=== PATIENT | female | born 1980 | race Caucasian/White ===

== ENCOUNTER 2017-10-01 06:01 | Emergency (ER) | payer BC ==
[2017-10-01 06:20] VITALS: TEMP 97.6; BMI 32.4
--- NOTE | 2017-10-01 06:23 | PDOC ---
History of Present Illness - History of Present Illness Initial Comments: 10/01/17 06:11 Just initiated Saxenda for weight loss. Started at 3mg instead of recommended 0.6mg Developed marked nausea and multiple bouts of vomiting Feels persistently nauseated pmh: constipation fhx: noncontrib ros: reviewed and otherwise negative Physical exam: GENERAL: [The patient is awake, alert, and fully oriented, and in no apparent distress.] HEAD: [Normal with no signs of trauma.] EYES: [Pupils equal, round and reactive to light, extraocular movements intact, sclera anicteric, conjunctiva are normal.] ENT: [TMs normal, nares patent, oropharynx clear without exudates. Moist mucous membranes.] NECK: [Normal range of motion, supple without lymphadenopathy, JVD, or masses.] LUNGS: [Breath sounds equal, clear to auscultation bilaterally. No wheezes, and no crackles.] HEART: [Regular rate and rhythm, normal S1 and S2 without murmur, rub or gallop.] ABDOMEN: [Soft, nontender, normoactive bowel sounds. No guarding, no rebound. No masses appreciated.] EXTREMITIES: [Normal range of motion, no edema. No clubbing or cyanosis. No cords, erythema, or tenderness.] NEUROLOGICAL: [Cranial nerves II through XII grossly intact. Normal speech, normal gait.] PSYCH: [Normal mood, normal affect.] SKIN: [Warm, Dry, normal turgor, no rashes or lesions noted.] a/p: medication reaction IVF <Ottoniel Caal - Last Filed: 10/01/17 06:28> <Fernanda Walton - Last Filed: 10/01/17 08:06> - General Chief Complaint: Nausea/Vomiting Stated Complaint: NAUSEA/VOMITING Past History - Suicide/Smoking/Psychosocial Hx Smoking Status: Yes Smoking History: Former smoker Number of Cigarettes Smoked Daily: 0 <Ottoniel Caal - Last Filed: 10/01/17 06:28> <Fernanda Walton - Last Filed: 10/01/17 08:06> - Past Medical History Allergies/Adverse Reactions: Allergies Allergy/AdvReac Type Severity Reaction Status Date / Time No Known Allergies Allergy Verified 03/25/13 15:05 Home Medications: Ambulatory Orders Escitalopram Oxalate [Lexapro -] 10 mg PO DAILY 10/01/17 Levothyroxine [Synthroid -] 150 mcg PO DAILY 10/01/17 Ondansetron [Zofran Odt -] 4 mg GT TID PRN #10 tab.rapdis 10/01/17 Saxenda 10/01/17 l-Norgest/E.estradiol-E.estrad [Camrese Lo Tablet] 1 each PO DAILY 10/01/17 *Physical Exam - Vital Signs Last Vital Signs Temp Pulse Resp BP Pulse Ox 97.6 F 94 H 18 137/88 98 10/01/17 06:16 10/01/17 07:02 10/01/17 06:16 10/01/17 06:16 10/01/17 06:16 <Fernanda Walton - Last Filed: 10/01/17 08:06> ED Treatment Course - Medications Given in the ED: ED Medications Discontinued Medications Generic Name Dose Route Start Last Admin Trade Name Freq PRN Reason Stop Dose Admin Ondansetron HCl 4 mg 10/01/17 07:18 10/01/17 07:22 Zofran Injection IVPUSH 10/01/17 07:19 4 mg ONCE ONE Administration Sodium Chloride 1,000 ml 10/01/17 07:18 10/01/17 07:22 Normal Saline - IV 10/01/17 07:19 1,000 ml ONCE ONE Administration <Fernanda Walton - Last Filed: 10/01/17 08:06> Medical Decision Making - Medical Decision Making 10/01/17 07:46 pt still nauseated on re-eval: will medicate with zofran and pepcid 10/01/17 07:49 pt feeling better after zofran and pepcid. No vomiting while in the ED. able to lay flat. will send rx to pharmacy. will po challenge. 10/01/17 08:05 pt tolerated po challenge. stable for d/c to home. Most likely n/v from [facility] drug reaction - started dose at 3mg instead of 0.6mg. pt will follow up with PMD. Answered all questions. Discussed all reasons to return to the ED. <Fernanda Walton - Last Filed: 10/01/17 08:06> *DC/Admit/Observation/Transfer <Ottoniel Caal - Last Filed: 10/01/17 06:28> <Fernanda Walton - Last Filed: 10/01/17 08:06> Diagnosis at time of Disposition: Medication reaction Qualifiers: Encounter type: initial encounter Qualified Code(s): T88.7XXA - Unspecified adverse effect of drug or medicament, initial encounter - Discharge Dispostion Disposition: HOME Condition at time of disposition: Stable - Prescriptions Prescriptions: Ondansetron [Zofran Odt -] 4 mg GT TID PRN #10 tab.rapdis PRN Reason: Nausea And/Or Vomiting - Referrals Referrals: Alvin Holloway MD [Primary Care Provider] - - Patient Instructions Printed Discharge Instructions: DI for Nausea -- Adult, DI for Vomiting -- Adult Additional Instructions: please follow-up with your doctor - Post Discharge Activity
[2017-10-01] MEDS ORDERED: FAMOTIDINE 20 MG/50 ML IVPB 50 ML IVPB ONE (07:18)
[2017-10-01] MEDS ORDERED: ONDANSETRON 4 MG/2 ML VIAL IVPUSH ONE (07:18)
[2017-10-01] MEDS ORDERED: SODIUM CHLORIDE 0.9% 1000 ML INFUS.BAG IV ONE (07:18)
[2017-10-01] MEDS ORDERED: FAMOTIDINE 20 MG/50 ML IVPB 20 MG/50 ML MG IVPB ONE ×2 (07:19→14:15)
[2017-10-01] MEDS ORDERED: ONDANSETRON 4 MG/2 ML VIAL ONE (07:19)
[2017-10-01 08:07] VITALS: BP 135/90; PULSE 85
== END 2017-10-01 08:15 | disposition home or self-care (01) ==
LOC: FER 06:01
PROC: 3E0337Z Introduction of Electrolytic and Water Balance Substance into Peripheral Vein, Percutaneous Approach (ICD-10-PCS; principal; 2017-10-01)
PROC: 3E033GC Introduction of Other Therapeutic Substance into Peripheral Vein, Percutaneous Approach (ICD-10-PCS; 2017-10-01)
DX: T88.7XXA Unspecified adverse effect of drug or medicament, initial encounter (principal); X58.XXXA Exposure to other specified factors, initial encounter; Y93.89 Activity, other specified; Y92.9 Unspecified place or not applicable; Z87.891 Personal history of nicotine dependence
CPT/HCPCS: 99282-25

== ENCOUNTER 2018-12-26 11:14 | Emergency (ER) | payer OTHER, BC ==
[2018-12-26 11:26] VITALS: BP 139/86; PULSE 76; TEMP 98; BMI 29.1
[2018-12-26] MEDS ORDERED: CYCLOBENZAPRINE HCL 10 MG TABLET (FP) PO ONE (11:30)
[2018-12-26] MEDS ORDERED: KETOROLAC TROMETHAMINE 60 MG/2 ML VIAL IM ONE (11:30)
[2018-12-26] MEDS ORDERED: KETOROLAC TROMETHAMINE 60 MG/2 ML VIAL ONE ×2 (11:43→13:12)
[2018-12-26] MEDS ORDERED: DIPHTH,PERTUSS(ACELL),TET 0.5 ML DISP.SYRIN IM ONE ×3 (11:43→13:31)
[2018-12-26] MEDS ORDERED: CYCLOBENZAPRINE HCL 10 MG TABLET (FP) ONE (11:43)
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
[2018-12-26] MEDS: DIPHTH,PERTUSS(ACELL),TET 0.5 ML DISP.SYRIN IM ONE ×2 (12:06→13:27)
[2018-12-26] MEDS ORDERED: CYCLOBENZAPRINE HCL 5 MG TABLET PO ONE (12:45)
[2018-12-26 13:35] LABS: HCG,QUALITATIVE URINE Negative; URINE APPEARANCE SLCLOUDY; URINE BILIRUBIN NEGATIVE (<2.0 mg/dL); URINE COLOR LTYELLOW; URINE GLUCOSE (UA) NEGATIVE (NEGATIVE); URINE KETONE NEGATIVE (NEGATIVE); URINE LEUK ESTERASE 2+ (NEGATIVE); URINE NITRITE NEGATIVE (NEGATIVE); URINE PROTEIN NEGATIVE (NEGATIVE); URINE UROBILINOGEN NEGATIVE mg/dL (0.2-1.0)
[2018-12-26 14:47] LABS: EPI CELLS RARE /HPF (FEW)
--- NOTE | 2018-12-27 10:46 | EKG ---
Test Reason : Blood Pressure : / mmHG Vent. Rate : 075 BPM Atrial Rate : 075 BPM P-R Int : 172 ms QRS Dur : 090 ms QT Int : 362 ms P-R-T Axes : 066 028 028 degrees QTc Int : 404 ms NORMAL SINUS RHYTHM NORMAL ECG NO PREVIOUS ECGS AVAILABLE Confirmed by KUMAR CHÁVEZ MD ([id number]) on 12/27/2018 10:45:53 AM Referred By: Confirmed By:KUMAR CHÁVEZ MD
== END 2018-12-26 14:15 | disposition home or self-care (01) ==
LOC: JER 11:14
PROC: 3E0234Z Introduction of Serum, Toxoid and Vaccine into Muscle, Percutaneous Approach (ICD-10-PCS; principal; 2018-12-26)
DX: S00.81XA Abrasion of other part of head, initial encounter (principal); M54.2 Cervicalgia; M54.6 Pain in thoracic spine; V43.62XA Car passenger injured in collision with other type car in traffic accident, initial encounter; Y92.488 Other paved roadways as the place of occurrence of the external cause; Y93.89 Activity, other specified; Y99.8 Other external cause status
CPT/HCPCS: 70450-TC; 72125-TC; 81003; 81015; 84703; 90471; 90715; 93005; 93010; 99281-25

== ENCOUNTER 2020-11-13 12:15 | Emergency (ER) | payer BC | END 2020-11-13 13:23 | disposition home or self-care (01) | LOC: JVIRT 12:15 | DX: Z20.822 Contact with and (suspected) exposure to COVID-19 (principal) | CPT/HCPCS: C9803; Q3014-GT; U0003 ==